=== PATIENT | male | born 1990 | race American Indian/Alaskan Native ===

== ENCOUNTER 2021-12-17 23:51 | Emergency (ER) | payer BC ==
--- NOTE | 2021-12-18 03:38 | Emergency Department Report ---
ED Male HPI - General Chief complaint: Urogenital-Male Stated complaint: PENIS DISCHARGE Source: patient Mode of arrival: Ambulatory Limitations: No Limitations - History of Present Illness Initial comments: Patient is a 31-year-old male with no past medical history presents to the ED with complaint of acute onset persistent dysuria, urinary frequency and urgency and penile discharge for the last 2 weeks after having unprotected sexual intercourse with his sexual partners. Patient states that the symptoms are especially worse with urination. Patient denies dizziness, syncope, fever, chills, chest pain and shortness of breath, sore throat, abdominal pain, low back pain, hematuria or testicular pain, diarrhea or traumatic injury. MD Complaint: penile discharge, dysuria -: Gradual, week(s) (2) Location: penis Radiation: none Severity: moderate Severity scale (0 -10): 4 Quality: burning, sharp Consistency: constant Improves with: none Worsens with: urination denies other symptoms, discharge, dysuria. denies: swelling, mass, rash, urinary retention, blood in urine, fever, nausea/vomiting, incontinence - Related Data Sexually active: Yes Previous Rx's Medication Instructions Recorded Last Taken Type Doxycycline Hyclate 100 mg PO Q12H #28 cap 12/18/21 Unknown Rx Ibuprofen [Motrin] 600 mg PO Q8H PRN #20 tablet 12/18/21 Unknown Rx Phenazopyridine [Pyridium] 200 mg PO BID #20 tab 12/18/21 Unknown Rx Allergies Allergy/AdvReac Type Severity Reaction Status Date / Time No Known Allergies Allergy Verified 12/17/21 23:55 ED Review of Systems ROS: Stated complaint: PENIS DISCHARGE Other details as noted in HPI Constitutional: denies: chills, fever Eyes: denies: eye pain, eye discharge, vision change ENT: denies: ear pain, throat pain Respiratory: denies: cough, shortness of breath, wheezing Cardiovascular: denies: chest pain, palpitations Endocrine: no symptoms reported Gastrointestinal: denies: abdominal pain, nausea, vomiting, diarrhea Genitourinary: urgency, frequency, discharge. denies: dysuria, testicular pain, testicular mass Musculoskeletal: denies: back pain, joint swelling, arthralgia Skin: denies: rash, lesions Neurological: denies: headache, weakness, paresthesias Psychiatric: denies: anxiety, depression Hematological/Lymphatic: denies: easy bleeding, easy bruising ED Past Medical Hx - Medications Home Medications: Home Medications Medication Instructions Recorded Confirmed Last Taken Type Doxycycline Hyclate 100 mg PO Q12H #28 cap 12/18/21 Unknown Rx Ibuprofen [Motrin] 600 mg PO Q8H PRN #20 tablet 12/18/21 Unknown Rx Phenazopyridine [Pyridium] 200 mg PO BID #20 tab 12/18/21 Unknown Rx ED Physical Exam - General Limitations: No Limitations General appearance: alert, in no apparent distress - Head Head exam: Present: atraumatic, normocephalic, normal inspection - Eye Eye exam: Present: normal appearance, PERRL, EOMI Pupils: Present: normal accommodation - ENT ENT exam: Present: normal exam, normal orophraynx, mucous membranes moist, TM's normal bilaterally, normal external ear exam - Neck Neck exam: Present: normal inspection, full ROM - Respiratory Respiratory exam: Present: normal lung sounds bilaterally. Absent: respiratory distress, wheezes, rales, rhonchi, stridor, chest wall tenderness, accessory muscle use, decreased breath sounds, prolonged expiratory - Cardiovascular Cardiovascular Exam: Present: regular rate, normal rhythm, normal heart sounds. Absent: systolic murmur, diastolic murmur, rubs, gallop - GI/Abdominal GI/Abdominal exam: Present: soft, normal bowel sounds. Absent: tenderness, re bound, hyperactive bowel sounds, organomegaly, mass - External exam: Present: other (Genital exam deferred at this time) - Extremities Exam Extremities exam: Present: normal inspection, full ROM, normal capillary refill. Absent: tenderness, pedal edema, joint swelling, calf tenderness - Back Exam Back exam: Present: normal inspection, full ROM. Absent: tenderness, CVA tenderness (R), CVA tenderness (L), muscle spasm, paraspinal tenderness, vertebral tenderness - Neurological Exam Neurological exam: Present: alert, oriented X3, CN II-XII intact, normal gait, reflexes normal - Psychiatric Psychiatric exam: Present: normal affect, normal mood - Skin Skin exam: Present: warm, dry, intact, normal color. Absent: rash ED Course Vital Signs 12/17/21 12/18/21 23:55 03:54 Temperature 99.0 F Pulse Rate 108 H 72 Respiratory 20 16 Rate Blood Pressure 134/85 O2 Sat by Pulse 100 100 Oximetry ED Medical Decision Making - Medical Decision Making This is a 31-year-old male with no past medical history presents to the ED with complaint of acute onset persistent dysuria, urinary frequency and urgency and penile discharge for the last 2 weeks after having unprotected sexual intercourse with his sexual partners. Patient states that the symptoms are especially worse with urination. Urinalysis showed significant infection consistent with sexually transmitted diseases possibly urethritis due to chlamydia or gonorrhea. Patient was empirically treated with Rocephin 1 g intramuscular injection in the ED. Patient was discharged home on medications and advised to follow-up with his primary care physician or [facility] for further STD testing including HIV and syphilis. Patient was advised to ensure that his sexual partners also get treated. Patient was advised to return to the ED immediately if symptoms get worse. - Differential Diagnosis STD; UTI; trichomonas; chlamydia urethritis; gonococcal urethritis Critical care attestation.: If time is entered above; I have spent that time in minutes in the direct care of this critically ill patient, excluding procedure time. ED Disposition Clinical Impression: Gonococcal urethritis in male, Chlamydial urethritis in male, Acute urinary tract infection Disposition: 01 HOME / SELF CARE / HOMELESS Is pt being admited?: No Does the pt Need Aspirin: No Condition: Stable Instructions: Chlamydia, Male, Urinary Tract Infection, Adult, [id number], Gonorrhea Additional Instructions: All lab test results were reviewed and are all nonactionable. Therefore take medication with food, drink plenty of fluids, follow-up with your primary care physician in 7 to 10 days for reevaluation. Consider following up with [facility] for further STD testing including HIV and syphilis. Ensure that all your sexual partners are informed obvious treatment and diagnosis so that they can also be treated. Return to the ED immediately if symptoms get worse. Prescriptions: Doxycycline Hyclate 100 mg PO Q12H #28 cap Ibuprofen [Motrin] 600 mg PO Q8H PRN #20 tablet PRN Reason: Pain Phenazopyridine [Pyridium] 200 mg PO BID #20 tab Referrals: [facility] [Outside] - 7-10 days Forms: STI Treatment and Prevention Time of Disposition: 03:38 Print Language: CITIZEN OF [place]
[2021-12-18 04:40] LABS: Bacteria,Urine 1+ /HPF (Negative); Mucus,Urine 1+ /HPF
[2021-12-18 04:48] LABS: Color,Urine Yellow (Yellow)
[2021-12-18] MEDS ORDERED: LIDOCAINE-MPF (1%) 10 MG/1 ML VIAL 5 ML INFILTRATI ONE (04:58)
[2021-12-18 05:52] VITALS: BP 138/87
== END 2021-12-18 05:52 | disposition home or self-care (01) ==
LOC: ED 23:51
DX: A56.01 Chlamydial cystitis and urethritis (principal); A54.01 Gonococcal cystitis and urethritis, unspecified; N39.0 Urinary tract infection, site not specified
CPT/HCPCS: 81001; 87086; 96372; 99283; J0696; J3490